=== PATIENT | female | born 1950 | race Caucasian/White ===

== ENCOUNTER 2019-05-07 14:36 | Inpatient (IN) | payer MEDICARE, OTHER ==
[2019-05-07 16:17] LABS: WHITE BLOOD COUNT 4.9 10^3/ul (4.8-10.8)
[2019-05-07 16:17] LABS: ABNORMAL IP MESSAGE 1; HEMATOCRIT 24.4 % (37.0-47.0); MEAN CORPUSCULAR HEMOGLOBIN 20.3 pg (29.0-33.0); MEAN CORPUSCULAR HGB CONC 28.3 g/dl (32.0-37.0); MEAN CORPUSCULAR VOLUME 71.8 fl (82.0-101.0); MEAN PLATELET VOLUME 10.5 fl (7.4-10.4); PLATELET COUNT 273 10^3/UL (140-415); RED CELL DISTRIBUTION WIDTH 17.9 % (11.5-14.5)
[2019-05-07 16:25] LABS: ADD MAN DIFF? YES; HEMOGLOBIN 6.9 g/dl (12.0-16.0); PATH REVIEW? YES; POSITIVE DIFF @See below
[2019-05-07 16:28] LABS: IRON 13 ug/dl (35-150)
[2019-05-07 16:29] LABS: ALANINE AMINOTRANSFERASE 15 IU/L (13-69); ALBUMIN 4.2 g/dl (3.3-4.9); ALKALINE PHOSPHATASE 43 IU/L (42-121); ANION GAP 8 (5-13); ASPARTATE AMINO TRANSFERASE 25 IU/L (15-46); BILIRUBIN,INDIRECT 0.3 mg/dl (0-1.1); BILIRUBIN,TOTAL 0.3 mg/dl (0.2-1.3); BLOOD UREA NITROGEN 16 mg/dl (7-20); CALCIUM 9.3 mg/dl (8.4-10.2); CARBON DIOXIDE 27 mmol/L (21-31); CHLORIDE 108 mmol/L (97-110); CREATININE 0.85 mg/dl (0.44-1.00); Estimated GFR > 60 mL/min (>60); GLUCOSE 109 mg/dl (70-220); POTASSIUM 4.4 mmol/L (3.5-5.1); SODIUM 143 mmol/L (135-144)
[2019-05-07 16:31] LABS: TOTAL PROTEIN 7.7 g/dl (6.1-8.1)
[2019-05-07 16:37] LABS: % IRON SATURATION 3 % SAT (22-52); TOTAL IRON BINDING CAPACITY 477 ug/dl (241-421)
[2019-05-07] MEDS: SOD CHLORIDE 0.9% 500 ML IV (16:54)
[2019-05-07 17:19] LABS: IMMEDIATE SPIN CROSSMATCH 1 1
[2019-05-07 17:26] LABS: ANISOCYTOSIS 3+ (0-0); BASOPHILS % (M) 1 % (0-2); EOSINOPHILS % (M) 3 % (0-7); GIANT THROMBO% (M) 3 % (0-0); HYPOCHROMASIA 1+ (0-0); LYMPHOCYTES #M 2.1 10^3/ul (0.8-2.9); LYMPHOCYTES % (M) 43 % (15-51); MICROCYTOSIS 3+ (0-0); MONOCYTES % (M) 1 % (0-11); PLATELET ESTIMATE NORMAL; POIKILOCYTOSIS 1+ (0-0); POLYCHROMASIA 2+ (0-0); SEGMENTED NEUTROPHILS (M) % 52 % (39-77); SMUDGE%M 11 % (0-0)
[2019-05-07 17:32] LABS: FERRITIN 3.3 ng/ml (11.1-264.0)
[2019-05-07] MEDS ORDERED: ACETAMINOPHEN 325 MG TAB PO (18:30)
[2019-05-07] MEDS ORDERED: ONDANSETRON 4 MG INJ IV (18:30)
[2019-05-07] MEDS ORDERED: SENNA TAB PO (19:00)
[2019-05-07] MEDS ORDERED: NACL 0.9% 3 ML SYG IV (19:00)
[2019-05-07] MEDS ORDERED: GLUCAGON 1 MG INJ IM (19:30)
[2019-05-07] MEDS ORDERED: GLUCOSE GEL 15 GRAM TUBE BUCCAL (19:30)
[2019-05-07] MEDS ORDERED: DEXTROSE 50% 50 ML SYRINGE IV ×2 (19:30)
[2019-05-07] MEDS ORDERED: GLUCOSE GEL 15 GRAM TUBE PO ×2 (19:30)
[2019-05-07] MEDS: FAMOTIDINE 20 MG INJ IV (21:00)
[2019-05-07] MEDS: INSULIN ASPART [NOVOLOG] 3 ML PEN SC (21:00)
[2019-05-07] MEDS: ATORVASTATIN 40 MG TAB PO (21:17)
[2019-05-07] MEDS: DOCUSATE SODIUM 100 MG CAP PO (21:17)
[2019-05-08] MEDS ORDERED: ZOLPIDEM 5 MG TAB (00:30)
[2019-05-08] MEDS: ZOLPIDEM 5 MG TAB PO ×2 (00:40→20:24)
[2019-05-08] MEDS: ACCU-CHEK XX ×2 (02:00→20:23)
[2019-05-08] MEDS: LEVOTHYROXINE 75 MCG TAB PO (06:14)
[2019-05-08 07:22] LABS: ADD MAN DIFF? NO
[2019-05-08 07:33] LABS: WHITE BLOOD COUNT 4.4 10^3/ul (4.8-10.8)
[2019-05-08 07:33] LABS: BASOPHILS % 0.9 % (0.0-2.0); EOSINOPHILS # 0.1 10^3/ul (0.0-0.5); EOSINOPHILS % 1.8 % (0.0-7.0); HEMATOCRIT 26.9 % (37.0-47.0); LYMPHOCYTES # 1.9 10^3/ul (0.8-2.9); LYMPHOCYTES % 43.5 % (15.0-51.0); MEAN CORPUSCULAR HEMOGLOBIN 21.4 pg (29.0-33.0); MEAN CORPUSCULAR HGB CONC 29.7 g/dl (32.0-37.0); MEAN CORPUSCULAR VOLUME 71.9 fl (82.0-101.0); MEAN PLATELET VOLUME 10.6 fl (7.4-10.4); MONOCYTE # 0.5 10^3/ul (0.3-0.9); MONOCYTES % 10.8 % (0.0-11.0); NEUTROPHIL # 1.9 10^3/ul (1.6-7.5); NEUTROPHILS % 42.8 % (39.0-77.0); PLATELET COUNT 257 10^3/UL (140-415); RED BLOOD COUNT 3.74 10^6/ul (4.20-5.40); RED CELL DISTRIBUTION WIDTH 18.3 % (11.5-14.5)
[2019-05-08] MEDS: INSULIN ASPART [NOVOLOG] 3 ML PEN SC ×4 (07:49→20:23)
[2019-05-08 09:01] LABS: TRANSFERRIN 383 mg/dL (188-341)
[2019-05-08] MEDS: ATENOLOL 25 MG TAB PO (09:05)
[2019-05-08] MEDS: LISINOPRIL 10 MG TAB PO (09:05)
[2019-05-08] MEDS: DOCUSATE SODIUM 100 MG CAP PO ×2 (09:05→20:22)
[2019-05-08] MEDS: AMLODIPINE 5 MG TAB PO (09:05)
[2019-05-08 09:43] LABS: HEMOGLOBIN A1C 6.3 % (0-5.9)
[2019-05-08] MEDS: BISACODYL (EC) 5 MG TAB PO (11:47)
[2019-05-08] MEDS: SOD FERRIC GLUC COMPLX 125 MG in SOD CHLORIDE 0.9% 100 ML IVPB (13:27)
[2019-05-08] MEDS: POLYETHYLENE GLYCOL 3350 119 GM POWDER PO (17:12)
[2019-05-08] MEDS: MAGNESIUM CITRATE 300 ML BTL PO (17:15)
[2019-05-08] MEDS: FAMOTIDINE 20 MG INJ IV (20:21)
[2019-05-08] MEDS: ATORVASTATIN 40 MG TAB PO (20:22)
[2019-05-09] MEDS: INSULIN ASPART [NOVOLOG] 3 ML PEN SC ×7 (00:51→20:29)
[2019-05-09] MEDS: POLYETHYLENE GLYCOL 3350 119 GM POWDER PO (05:34)
[2019-05-09] MEDS: LEVOTHYROXINE 75 MCG TAB PO (05:34)
[2019-05-09] MEDS: ATENOLOL 25 MG TAB PO (09:00)
[2019-05-09] MEDS: AMLODIPINE 5 MG TAB PO ×2 (09:00→10:59)
[2019-05-09] MEDS: LISINOPRIL 10 MG TAB PO ×2 (09:00)
[2019-05-09] MEDS: BISACODYL (EC) 5 MG TAB PO (09:07)
[2019-05-09] MEDS: DOCUSATE SODIUM 100 MG CAP PO ×2 (09:07→20:32)
[2019-05-09] MEDS: ONDANSETRON 4 MG INJ IV (10:54)
[2019-05-09] MEDS: SOD FERRIC GLUC COMPLX 125 MG in SOD CHLORIDE 0.9% 100 ML IVPB (12:59)
[2019-05-09] MEDS ORDERED: LIDOCAINE 2% (SDV) 5 ML INJ (14:27)
[2019-05-09] MEDS: PROPOFOL 40 ML (14:47)
[2019-05-09] MEDS: ACETAMINOPHEN 325 MG TAB PO (17:55)
[2019-05-09] MEDS: ATORVASTATIN 40 MG TAB PO (20:32)
[2019-05-10] MEDS: LEVOTHYROXINE 75 MCG TAB PO (06:23)
[2019-05-10] MEDS: PANTOPRAZOLE (EC) 40 MG TAB PO (06:23)
[2019-05-10 07:13] LABS: ADD MAN DIFF? NO
[2019-05-10 07:17] LABS: WHITE BLOOD COUNT 5.6 10^3/ul (4.8-10.8)
[2019-05-10 07:17] LABS: ABNORMAL IP MESSAGE 1; BASOPHIL # 0.1 10^3/ul (0.0-0.1); BASOPHILS % 1.1 % (0.0-2.0); EOSINOPHILS # 0.1 10^3/ul (0.0-0.5); EOSINOPHILS % 1.6 % (0.0-7.0); HEMATOCRIT 30.9 % (37.0-47.0); HEMOGLOBIN 8.7 g/dl (12.0-16.0); LYMPHOCYTES # 1.8 10^3/ul (0.8-2.9); LYMPHOCYTES % 32.1 % (15.0-51.0); MEAN CORPUSCULAR HGB CONC 28.2 g/dl (32.0-37.0); MEAN CORPUSCULAR VOLUME 74.6 fl (82.0-101.0); MEAN PLATELET VOLUME 10.3 fl (7.4-10.4); MONOCYTE # 0.4 10^3/ul (0.3-0.9); MONOCYTES % 7.7 % (0.0-11.0); NEUTROPHIL # 3.1 10^3/ul (1.6-7.5); NEUTROPHILS % 55.9 % (39.0-77.0); NUCLEATED RED BLOOD CELLS% 0.4 /100WBC (0.0-0.0); PLATELET COUNT 291 10^3/UL (140-415); RED BLOOD COUNT 4.14 10^6/ul (4.20-5.40); RED CELL DISTRIBUTION WIDTH 20.2 % (11.5-14.5)
[2019-05-10 07:21] LABS: POSITIVE DIFF @See below
[2019-05-10] MEDS: INSULIN ASPART [NOVOLOG] 3 ML PEN SC (07:30)
[2019-05-10 07:45] LABS: ANION GAP 9 (5-13); BLOOD UREA NITROGEN 15 mg/dl (7-20); CALCIUM 9.2 mg/dl (8.4-10.2); CARBON DIOXIDE 27 mmol/L (21-31); CHLORIDE 108 mmol/L (97-110); CREATININE 0.88 mg/dl (0.44-1.00); Estimated GFR > 60 mL/min (>60); GLUCOSE 103 mg/dl (70-220); PHOSPHORUS 4.1 mg/dl (2.5-4.9); SODIUM 144 mmol/L (135-144)
[2019-05-10] MEDS: DOCUSATE SODIUM 100 MG CAP PO (08:25)
[2019-05-10] MEDS: ATENOLOL 25 MG TAB PO (08:26)
[2019-05-10] MEDS: AMLODIPINE 5 MG TAB PO (08:26)
[2019-05-10] MEDS: LISINOPRIL 10 MG TAB PO (08:27)
[2019-05-10 11:49] LABS: ANISOCYTOSIS 2+ (0-0); EOSINOPHILS % (M) 3 % (0-7); GIANT THROMBO% (M) 1 % (0-0); HYPOCHROMASIA 1+ (0-0); LYMPHOCYTES #M 1.1 10^3/ul (0.8-2.9); LYMPHOCYTES % (M) 20 % (15-51); MICROCYTOSIS 2+ (0-0); MONOCYTE #M 0.1 10^3/ul (0.3-0.9); MONOCYTES % (M) 2 % (0-11); PLATELET ESTIMATE NORMAL; POLYCHROMASIA 2+ (0-0); SEGMENTED NEUTROPHILS (M) % 75 % (39-77); SMUDGE%M 17 % (0-0)
== END 2019-05-10 12:40 | disposition home or self-care (01) | DRG 394 ==
LOC: E/R 14:36 → PP2 19:27
PROC: 0DBL8ZZ Excision of Transverse Colon, Via Natural or Artificial Opening Endoscopic (ICD-10-PCS; principal; 2019-05-09 14:53)
PROC: 0DB68ZX Excision of Stomach, Via Natural or Artificial Opening Endoscopic, Diagnostic (ICD-10-PCS; 2019-05-09 14:53)
PROC: 30233N1 Transfusion of Nonautologous Red Blood Cells into Peripheral Vein, Percutaneous Approach (ICD-10-PCS; 2019-05-09 14:53)
DX: K64.8 Other hemorrhoids (principal); D62 Acute posthemorrhagic anemia; K63.5 Polyp of colon; I10 Essential (primary) hypertension; K21.9 Gastro-esophageal reflux disease without esophagitis; E78.5 Hyperlipidemia, unspecified; E03.9 Hypothyroidism, unspecified; E66.01 Morbid (severe) obesity due to excess calories; Z68.33 Body mass index [BMI] 33.0-33.9, adult; R73.03 Prediabetes; K20.9 Esophagitis, unspecified
CPT/HCPCS: 36415; 36430; 80048; 80053; 82728; 82962; 83036; 83540; 83735; 84100; 84466; 85025; 86850; 86900; 86901; 86920; 88305; 88312; 99285-25